=== PATIENT | male | born 1945 | race Caucasian/White ===

== ENCOUNTER 2017-10-10 22:53 | Emergency (ER) | payer MEDICARE, OTHER ==
--- NOTE | 2017-10-10 23:06 | EDM.PDOC ---
ED HPI GENERAL MEDICAL PROBLEM - General Chief Complaint: Respiratory Problem Stated Complaint: cough Time Seen by Provider: 10/10/17 23:00 Source of Information: Reports: Patient, Old Records ([facility] chart/EMR) History Limitations: Reports: No Limitations - History of Present Illness INITIAL COMMENTS - FREE TEXT/NARRATIVE: Patient drove himself to the emergency room via private automobile for evaluation of a three-day history of progressive nonproductive cough, general myalgias/flu type symptoms and a mild sore throat with myalgias rated at 3/10. He did receive an influenza booster about one month ago with no known exposure to infection. Symptoms have been refractory to OTC Mucinex. He denies any dyspnea, wheezing, fever, etc.. The patient denies any chest pain/pressure, heart flutter, dizziness, orthostasis, orthopnea, diaphoresis, paresthesias, recent decreased exercise tolerance, or any other anginal-type symptoms. No recent history of abdominal pain, heartburn, nausea, diarrhea, melena, gross hematochezia, or any food intolerance, including fatty foods, etc.. Onset: Gradual Onset Date: 10/08/17 Duration: Getting Worse, Intermittent Location: Reports: Generalized Quality: Reports: Ache, Same as Previous Episode Improves with: Reports: None Worsens with: Reports: None Context: Reports: Other (As above) Associated Symptoms: Reports: Cough. 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) (As above) Generalized Pain Score (Numeric/FACES): 3 - Related Data Allergies Allergy/AdvReac Type Severity Reaction Status Date / Time No Known Allergies Allergy Verified 10/10/17 22:55 Home Meds: Home Meds Ca Citrate/Mgox/Vit D3/B6/Min [Calcium Citrate Plus Tablet] 1 each PO DAILY 12/30 [History] Clopidogrel [Plavix] 75 mg PO BEDTIME 10/18/13 [History] Iron,Carbonyl/Vit C/Vit B12/Fa [Iron 100 Plus Tablet] 45 each PO BEDTIME [History] Lisinopril 10 mg PO BEDTIME 10/18/13 [History] Multivitamin [Multivitamins] 1 each PO DAILY 10/18/13 [History] Vitamin B Complex 1 each PO BEDTIME 10/18/13 [History] atorvaSTATin [Lipitor] 20 mg PO BEDTIME 10/18/13 [History] Cyanocobalamin (Vitamin B-12) [Vitamin B-12] 2,500 mcg SL BEDTIME 04/27/14 [ History] guaiFENesin/Dextromethorphan [Mucinex Dm ER 1,200-60 mg Tab] 1 each PO Q12H #20 tab.er.12h 10/10/17 [Rx] Past Medical History Cardiovascular History: Reports: Afib, Arrhythmia, CAD, Heart Murmur, High Cholesterol, Hypertension, RI, Other (See Below) Other Cardiovascular History: non-STEMI on 09/04/12 with newly diagnosed CHF, atrial fibrillation with rapid ventricular response, and PVCs Gastrointestinal History: Reports: GI Bleed, Other (See Below). Denies: Diverticulosis Other Gastrointestinal History: Probable lower GI bleed on 05/14/15 Genitourinary History: Reports: BPH Musculoskeletal History: Reports: Back Pain, Chronic, Neck Pain, Chronic, Osteoarthritis Endocrine/Metabolic History: Reports: Diabetes, Type II, Obesity/BMI 30+ Hematologic History: Reports: Anemia, B12 Deficiency, Iron Deficiency - Past Surgical History GI Surgical History: Reports: Bariatric Procedure, Colonoscopy, EGD, Other (See Below) Other GI Surgeries/Procedures: Last colonoscopy on 04/28/14, EGD on 05/15/15, Cindi -en-Y procedure in about 2008 Social & Family History - Family History Cardiac: Reports: Arrhythmia, Other (See Below) Other Cardiac Family History: Father with arrhythmia Oncologic: Reports: Lung, Lymphoma, Other (See Below) Other Oncologic Family History: Father from lymphoma in his 80s, paternal grandfather with fatal lung cancer in his 80s with history of tobacco use - Tobacco Use Smoking Status *Q: Never Smoker - Alcohol Use Alcohol Use History: No Days Per Week of Alcohol Use: 0 (No previous DWIs, problems with alcohol abuse, etc.) Alcohol Use in Last Twelve Months: No - Recreational Drug Use Recreational Drug Use: No Drug Use in Last 12 Months: No - Living Situation & Occupation Living situation: Reports: Single 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 ED EXAM, GENERAL - Physical Exam Exam: See Below Exam Limited By: No Limitations General Appearance: Alert, WD/WN, No Apparent Distress Eye Exam: Bilateral Eye: EOMI, Normal Inspection (No nystagmus), PERRL Ears: Normal External Exam, Normal Canal, Hearing Grossly Normal, Normal TMs Nose: Normal Mucosa, No Blood, Clear Rhinorrhea Throat/Mouth: Normal Lips, Normal Teeth (Multiple missing teeth), Normal Gums, Normal Oropharynx (Trace erythema in the posterior pharynx with no pinpoint white exudates or peritonsillar abscess), Normal Voice, No Airway Compromise. No: Dysphagia, Perioral Cyanosis Head: Atraumatic, Normocephalic. No: Facial Swelling, Facial Tenderness, Sinus Tenderness Neck: Normal Inspection, Supple, Non-Tender, Full Range of Motion. No: Lymphadenopathy (L), Lymphadenopathy (R), Thyromegaly Respiratory/Chest: No Respiratory Distress, Lungs Clear, Normal Breath Sounds, No Accessory Muscle Use, Chest Non-Tender. No: Pleural Rub, Retractions Cardiovascular: Normal Peripheral Pulses, Regular Rate, Rhythm, No Edema, No Gallop, No JVD, No Murmur, No Rub. No: Friction Rub Peripheral Pulses: 2+: Radial (L), Radial (R) GI/Abdominal: Normal Bowel Sounds, Soft, Non-Tender, No Organomegaly, No Distention, No Abnormal Bruit, No Mass, Other (Obese). No: Guarding (Male) Exam: Deferred Rectal (Males) Exam: Deferred Back Exam: Normal Inspection, Full Range of Motion. No: CVA Tenderness (L), CVA Tenderness (R), Muscle Spasm Extremities: Normal Inspection, Normal Range of Motion, Non-Tender, No Pedal Edema, Normal Capillary Refill. No: Jean Carlos's Sign Neurological: Alert, Oriented, CN II-XII Intact, Normal Cognition, Normal Gait, No Motor/Sensory Deficits Skin Exam: Warm, Dry, Intact, Normal Color, No Rash. No: Diaphoretic, Wound/ Incision Lymphatic: No Adenopathy Course - Vital Signs Last Recorded V/S: Last Vital Signs Temp 36.9 C 10/10/17 23:13 Pulse 62 10/10/17 23:13 Resp 18 10/10/17 23:13 BP 161/77 H 10/10/17 23:13 Pulse Ox 98 10/10/17 23:13 Vital Signs - 24 hr 10/10/17 23:13 Temperature [ 36.9 C Temporal] Pulse, 62 Peripheral [ Left Pulse Oximetry] Respiratory 18 Rate Blood Pressure 161/77 H [Left Upper Arm ] O2 Sat by Pulse 98 Oximetry - Orders/Labs/Meds Orders: Active Orders 24 hr Category Date Time Status CULTURE STREP A CONFIRMATION [RM] Stat Lab 10/10/17 23:07 Results STREP SCRN A RAPID W CULT CONF [RM] Stat Lab 10/10/17 23:07 Results Obtain Past Medical Record [OM.PC] Routine Oth 10/10/17 23:06 Active Labs: Microbiology 10/10/17 23:07 Throat Group A Streptococcus Rapid Screen - Final NEGATIVE STREP A SCREEN 10/10/17 23:07 Nasal, Left Influenza Type A Antigen Screen - Final NEGATIVE INFLUENZA A VIRUS AG 10/10/17 23:07 Nasal, Left Influenza Type B Antigen Screen - Final NEGATIVE INFLUENZA B VIRUS AG Meds: Medications Discontinued Medications Generic Name Dose Route Start Last Admin Trade Name Freq PRN Reason Stop Dose Admin Guaifenesin/Dextromethorphan 1 tab 10/11/17 23:48 Mucinex Dm Er 600-30 Mg PO 10/11/17 23:49 ONETIME ONE Guaifenesin/Dextromethorphan 1 tab 10/10/17 23:48 10/10/17 23:58 Mucinex Dm Er 600-30 Mg PO 10/10/17 23:49 1 tab ONETIME ONE Administration - Radiology Interpretation Free Text/Narrative:: None Departure - Departure Time of Disposition: 00:05 Disposition: Home, Self-Care 01 Condition: Good Clinical Impression: Bronchitis, Diabetes mellitus Upper respiratory infection Qualifiers: URI type: acute pharyngitis Pharyngitis/tonsillitis etiology: other specified organisms Qualified Code(s): J02.8 - Acute pharyngitis due to other specified organisms Pharyngitis Qualifiers: Pharyngitis/tonsillitis etiology: other specified organisms Qualified Code(s): J02.8 - Acute pharyngitis due to other specified organisms Hypertension Qualifiers: Hypertension type: essential hypertension Qualified Code(s): I10 - Essential ( primary) hypertension Hyperlipidemia Qualifiers: Hyperlipidemia type: unspecified Qualified Code(s): E78.5 - Hyperlipidemia, unspecified Coronary artery disease Qualifiers: Coronary Disease-Associated Artery/Lesion type: [place] artery [place] vs. transplanted heart: [place] heart Associated angina: without angina Qualified Code(s): I25.10 - Atherosclerotic heart disease of [place] coronary artery without angina pectoris Osteoarthritis Qualifiers: Osteoarthritis location: multiple joints Osteoarthritis type: primary Qualified Code(s): M15.0 - Primary generalized (osteo)arthritis - Discharge Information Prescriptions: guaiFENesin/Dextromethorphan [Mucinex Dm ER 1,200-60 mg Tab] 1 each PO Q12H #20 tab.er.12h Instructions: Acute Bronchitis, [id number], Upper Respiratory Infection, Adult, [id number] Referrals: Reinaldo Hale [employer] [facility]ER [Primary Care Provider] - Forms: ED Department Discharge Additional Instructions: 1. Follow up with your regular provider in 10-14 days as needed, if symptoms persist. 2. Tylenol 650 mg by mouth every 4 hours and/or OTC ibuprofen 2-3 tabs by mouth every 6 hours with food as directed./needed. 3. Hygiene issues as discussed 4. Listerine gargles four times per day, after meals and at bedtime, with additional Chloroseptic lozenges or spray as needed for 10 days and/or until symptoms resolve. - Problem List & Annotations (1) Upper respiratory infection SNOMED Code(s): 74636139 Code(s): J06.9 - ACUTE UPPER RESPIRATORY INFECTION, UNSPECIFIED Status: Acute Priority: High Current Visit: Yes Onset Date: 10/11/17 Annotation/ Comment:: Viral URI with secondary bronchitis and pharyngitis as below Qualifiers: URI type: acute pharyngitis Pharyngitis/tonsillitis etiology: other specified organisms Qualified Code(s): J02.8 - Acute pharyngitis due to other specified organisms (2) Bronchitis SNOMED Code(s): 64190922 Code(s): J40 - BRONCHITIS, NOT SPECIFIED ACUTE OR CHRONIC Status: Acute Priority: High Current Visit: Yes Onset Date: ~10/08/17 Annotation/ Comment:: Probable viral bronchitis. Note negative influenza and strep screens as above. Symptomatic relief as per discharge instructions (3) Pharyngitis SNOMED Code(s): 666243604 Code(s): J02.9 - ACUTE PHARYNGITIS, UNSPECIFIED Status: Acute Priority: High Current Visit: Yes Onset Date: 10/08/17 Annotation/Comment:: Negative strep screen as above. Symptomatic relief as per discharge instructions Qualifiers: Pharyngitis/tonsillitis etiology: other specified organisms Qualified Code( s): J02.8 - Acute pharyngitis due to other specified organisms (4) Diabetes mellitus SNOMED Code(s): 27913665 Code(s): E11.9 - TYPE 2 DIABETES MELLITUS WITHOUT COMPLICATIONS Status: Chronic Priority: Medium Current Visit: Yes Annotation/Comment:: Currently diet controlled. Note persistent obesity Qualifiers: Diabetes mellitus type: type 2 Diabetes mellitus complication status: without complication Diabetes mellitus group home insulin use: without group home use Qualified Code(s): E11.9 - Type 2 diabetes mellitus without complications (5) Coronary artery disease SNOMED Code(s): 02623940 Code(s): I25.10 - ATHSCL HEART DISEASE OF [place] CORONARY ARTERY W/O ANG PCTRS Status: Chronic Priority: Medium Current Visit: Yes Onset Date: Annotation/Comment:: Distant non-STEMI, atrial fibrillation, PVCs, etc. with no recent chest pain or anginal complaints Qualifiers: Coronary Disease-Associated Artery/Lesion type: [place] artery [place] vs. transplanted heart: [place] heart Associated angina: without angina Qualified Code(s): I25.10 - Atherosclerotic heart disease of [place] coronary artery without angina pectoris (6) Hyperlipidemia SNOMED Code(s): 90564415 Code(s): E78.5 - HYPERLIPIDEMIA, UNSPECIFIED Status: Chronic Priority: Medium Current Visit: Yes Annotation/Comment:: Currently under therapy. Persistent obesity despite previous gastric bypass surgery with weight loss in moderation advisable Qualifiers: Hyperlipidemia type: unspecified Qualified Code(s): E78.5 - Hyperlipidemia , unspecified (7) Hypertension SNOMED Code(s): 36865959 Code(s): I10 - ESSENTIAL (PRIMARY) HYPERTENSION Status: Chronic Priority : Medium Current Visit: Yes Annotation/Comment:: Blood Pressure somewhat elevated today. Continue to observe closely by regular provider Qualifiers: Hypertension type: essential hypertension Qualified Code(s): I10 - Essential (primary) hypertension (8) Osteoarthritis SNOMED Code(s): 127935379 Code(s): M19.90 - UNSPECIFIED OSTEOARTHRITIS, UNSPECIFIED SITE Status: Chronic Priority: Medium Current Visit: Yes Annotation/Comment:: Other than nonspecific generalized myalgias from current illness stable by history Qualifiers: Osteoarthritis location: multiple joints Osteoarthritis type: primary Qualified Code(s): M15.0 - Primary generalized (osteo)arthritis - Problem List Review Problem List Initiated/Reviewed/Updated: Yes - My Orders Last 24 Hours: My Active Orders 10/10/17 23:06 Obtain Past Medical Record [OM.PC] Routine 10/10/17 23:07 CULTURE STREP A CONFIRMATION [RM] Stat STREP SCRN A RAPID W CULT CONF [RM] Stat - Assessment/Plan Last 24 Hours: My Active Orders 10/10/17 23:06 Obtain Past Medical Record [OM.PC] Routine 10/10/17 23:07 CULTURE STREP A CONFIRMATION [RM] Stat STREP SCRN A RAPID W CULT CONF [RM] Stat Assessment:: As above Plan: As above. Extensive precautions were given to the patient, who is in agreement with the treatment plan. See Patient Instructions for further treatment and plan.
[2017-10-10 23:15] VITALS: BP 161/77
[2017-10-10] MEDS ORDERED: Dextromethorphan/guaiFENesin 600-30 MG Tab.ER PO ONE (23:48)
[2017-10-11] MEDS ORDERED: Dextromethorphan/guaiFENesin 600-30 MG Tab.ER PO ONE (23:48)
== END 2017-10-11 00:05 | disposition home or self-care (01) ==
LOC: LL.ED 22:53
DX: J40 Bronchitis, not specified as acute or chronic (principal); J02.8 Acute pharyngitis due to other specified organisms; I25.10 Atherosclerotic heart disease of native coronary artery without angina pectoris; I10 Essential (primary) hypertension; E78.5 Hyperlipidemia, unspecified; M15.0 Primary generalized (osteo)arthritis; Z79.899 Other long term (current) drug therapy
CPT/HCPCS: 87081; 87430; 87804; 99284; A9270; 99282